=== PATIENT | female | born 1935 | race Caucasian/White ===

== ENCOUNTER 2016-06-13 05:54 | Inpatient (IN) | payer OTHER ==
[2016-06-13] VITALS (12 sets, daily range): BP systolic 11–116; BP diastolic 43–84
[~2016-06-13] VITALS: Ht 149.9 cm; Wt 68.3 kg
--- NOTE | ~2016-06-13 | HC ---
[facility] [place] [address] CONSULTATION Name: MAGGIE PORTILLO Room #: 422-P ADM IN M.R.#: [id number] Admission: 06/13/16 Attend Phys: Marcus Peck Discharge: Date of : 31 Report #: [id number] THIS REPORT FOR: //name// CC: Nae Peck PRIMARY CARE PHYSICIAN: Unknown. REFERRAL PHYSICIAN: Dr. Marcus Peck. REASON FOR REFERRAL: Sepsis, pneumonia. HISTORY OF PRESENT ILLNESS: The patient is an 81-year-old care home patient brought to the hospital with apparent altered mental status. She is felt to have pneumonia with sepsis. A pulmonary consultation was requested. The patient is nonverbal. She is obtunded. She apparently presented to [facility] for evaluation of altered mental status. She was felt to have aspirated and was subsequently transferred to [facility]. Family is not available. According to the records, patient has been debilitated, with a history of CVA. She is lying in bed. She has muscle contractures. Portable chest x-ray and the rest of the laboratory data are pending at this time. PAST MEDICAL HISTORY: As mentioned above with progressive debility, weakness, apparent history of CVA, hypertension, osteoarthritis, glaucoma. PAST SURGICAL HISTORY: Include status post bilateral cataract, lens implantation, umbilical hernia repair, laparoscopic cholecystectomy, history of dental extractions. ALLERGIES: PENICILLIN, SULFA, QUININE, which causes edema and rash. MEDICATIONS: List reviewed in the [facility]. FAMILY HISTORY AND SOCIAL HISTORY: Is unknown. REVIEW OF SYSTEMS: Deferred as patient is nonverbal. PHYSICAL EXAMINATION: GENERAL: She is not responsive. VITAL SIGNS: Temperature is 98 degrees Fahrenheit, pulse is 100, respiratory rate is 24, blood pressure is 107/53 mmHg, saturation 94% on 4 liters of O2. [facility] [address] [place] [address] CONSULTATION Name: MAGGIE PORTILLO Room #: 422-P [facility] IN [facility].#: [id number] Admission: 06/13/16 Attend Phys: Marcus Peck Discharge: Date of : 31 Report #: [id number] HEENT: Normocephalic, atraumatic. NECK: Supple without any lymphadenopathy or thyromegaly. CHEST: Breath sounds are decreased bilaterally due to poor effort. No obvious wheezes. Few scattered crackles in the bases. CARDIOVASCULAR: Heart sounds are distant. No obvious murmurs or gallop. Pulses are 2+/4+ bilaterally. BREASTS: Exam deferred. ABDOMEN: Soft, no masses felt. Nontender. GENITOURINARY: Deferred. RECTAL: Deferred. EXTREMITIES: No cyanosis, clubbing or edema. MUSCULOSKELETAL: Moderate muscle atrophy is noted. The patient appears to have muscle contractures. Laboratory and portable chest x-ray pending. IMPRESSION: 1. Altered mental status in this 81-year-old white female. She resides in a nursing care facility. Sepsis is suspected. Aspiration is also suspected. The patient may have a component of aspiration pneumonia. 2. Acute hypoxic respiratory failure due to above. 3. Presumed aspiration pneumonia. We will review chest x-ray when available. 4. Progressive debility weakness with an apparent history of cerebrovascular accident. 5. Dementia. 6. Hypertension. RECOMMENDATION: Agree with current treatment plans including broad spectrum antibiotics, sepsis protocol. According to nursing, the patient had been in hospice care at the nursing facility. I agree with the treatment in this patient with advanced age with dementia and progressive weakness and debility. We will discuss with her daughter who was on the way to the hospital regarding level of care. Thank you for this consultation. <ELECTRONICALLY SIGNED> By: Thien Wells MD 06/14/16 1634 [id number] Thien Wells MD /nt
--- NOTE | ~2016-06-13 | HC ---
[facility] [place] [address] CONSULTATION Name: MAGGIE PORTILLO Room #: 422-P ADM IN M.R.#: [id number] Admission: 06/13/16 Attend Phys: Marcus Peck Discharge: Date of : 31 Report #: [id number] THIS REPORT FOR: //name// CC: Nae Peck INFECTIOUS DISEASES CONSULTATION REASON FOR CONSULTATION: I was asked to evaluate concerning severe sepsis and decreased mental status. HISTORY OF PRESENT ILLNESS: The patient was an 81-year-old [facility] with underlying cerebrovascular disease and dementia, who was unable to give any details of her history. She presented to [facility] earlier this morning with decreased responsiveness. There, she was tachycardic, temperature of 99.5, blood pressure was 110/55. She was responsive, but we were concerned about further sepsis and decline and was transferred to [facility]. Here, vital signs are being taken. I do not have her temperature, yet her heart rate is 100, blood pressure 97/46. She received 1 liter of IV fluids, at least hanging now. I do not know how much she received in the emergency room at [facility]. She has indwelling Guerrier catheter and peripheral IV in place. No reported rashes or decubiti. No nausea, vomiting or diarrhea. ALLERGIES: Multiple including PENICILLIN, CEPHALOSPORINS and SULFA. Full list as noted in her charting. MEDICATIONS: As noted on her JUL. [facility] Lev[facility]. PAST MEDICAL HISTORY: Stroke, dementia, contractures, hypertension, urinary tract infection, total knee arthroplasties, C. difficile colitis, dysphagia, gastroesophageal reflux, glaucoma and restless leg syndrome. FAMILY HISTORY: Noncontributory. SOCIAL HISTORY: [facility] resident, otherwise noncontributory. REVIEW OF SYSTEMS: As noted above. PHYSICAL EXAMINATION: GENERAL: The patient was arousable. She was non-communicative. She was contractured in both upper and lower extremities. SKIN: In good repair, with no decubiti or rash. No adenopathy. EYES: Some conjunctivitis. MOUTH: Unremarkable. LUNGS: Few crackles in the bases bilaterally. No consolidation. [facility] [address] [place] [address] CONSULTATION Name: MAGGIE PORTILLO [place] Room #: 422-P [facility] IN M.R.#: [id number] Admission: 06/13/16 Attend Phys: Marcus Peck Discharge: Date of : 31 Report #: [id number] HEART: Tachycardic and regular. ABDOMEN: Soft. Did not appear tender. No hepatosplenomegaly or mass appreciated. Bowels palpable in the lower abdomen, I suspect just poor muscular tone. RECTAL EXAMINATION: Not performed. Indwelling Guerrier catheter. LABORATORY STUDIES: Prior to her arrival from [facility] Emergency Room, sodium was 134, potassium 3.5, bicarbonate 25 and creatinine 1.8. Lactate 3.4. Liver function test normal. BNP was 1979. On 4 liters of oxygen showed pO2 is 58, pCO2 of 33 and pH of 7.4. Chest x-ray showed bilateral atelectasis and infiltrate. Hemoglobin 13.1, white count 7.9 with 53% bands and platelet count 163,000. IMPRESSION AND PLAN: An 81-year-old [facility] with cerebrovascular disease and dementia, contractured, reportedly on hospice care, now with sepsis syndrome, dehydration, acute renal failure and marked left shift on her white count, suspecting either urinary tract infection or pneumonia. Abdomen was soft. I do not think we are dealing with an intra-abdominal infection at this time. I would recommend IV fluid resuscitation, continue respiratory care. IV antibiotic therapy. We will need to discuss further with family how aggressive to be in this situation, considering the patient is on hospice. <ELECTRONICALLY SIGNED> By: Amos Gomez MD 06/14/16 0833 [id number] Amos Gomez MD /nt
[2016-06-13 08:43] LABS: ABG SAMPLE TYPE ARTERIAL; BE(vivo) 2.8 mmol/L (-2 to +3); LACTATE 2.49 mmol/L (0.5-2.0); O2(CT) 15.8 mL/dL (15.0-23.0); O2Hb 88.1 % (92.0-98.0); PCO2 35.1 mmHg (35.0-45.0); pH 7.487 (7.360-7.450); sO2 89.7 % (92.0-98.0)
[2016-06-13 08:44] LABS: PO2 52.1 mmHg (80.0-100.0); STICK SITE L.RADIAL
[2016-06-13 08:45] LABS: HEMATOCRIT 37.3 % (37.0-47.0); HEMOGLOBIN 12.3 gm/dL (12.0-15.0); MCH 30.3 pg (26.0-34.0); MCHC 32.9 % (28.0-37.0); MCV 92.3 fL (80.0-100.0); RBC 4.04 mil/uL (4.20-5.00); WBC 7.7 thou/uL (4.0-11.0)
[2016-06-13 08:46] LABS: MANUAL DIFF YES
[2016-06-13 08:59] LABS: CREATININE 1.7 mg/dL (0.6-1.3); POTASSIUM 3.3 mmol/L (3.5-5.1)
[2016-06-13 09:01] LABS: APTT 38.3 Seconds (24.5-32.8); INR 1.1; PROTIME 11.6 Seconds (9.3-11.4)
[2016-06-13 09:04] LABS: ALBUMIN 1.7 g/dL (3.4-5.0); TOTAL BILIRUBIN 0.6 mg/dL (<0.1-1.0); TOTAL PROTEIN 5.8 g/dL (6.4-8.2)
[2016-06-13 10:17] LABS: ABSOLUTE NEUTROPHILS 6.9 thou/uL (1.4-8.2); TOTAL CELL COUNT 100
[2016-06-13 10:18] LABS: LARGE PLATELETS FEW
[2016-06-13 10:19] LABS: TOXIC GRANULATION SLIGHT
[2016-06-13 10:23] LABS: PLATELET COUNT 158 thou/uL (150-400)
[2016-06-13 10:55] LABS: URINE BILIRUBIN NEGATIVE (Negative); URINE BLOOD 1+ (Negative); URINE COLOR YELLOW; URINE GLUCOSE-RANDOM* NEGATIVE (Negative); URINE KETONES NEGATIVE (Negative); URINE NITRITE NEGATIVE (Negative); URINE PROTEIN (DIPSTICK) TRACE (Negative); URINE UROBILINOGEN 0.2 E.U./dl (0.2-1.0)
[2016-06-13 11:09] LABS: SQUAMOUS >10 Many /LPF (0-3); URINE RBC 0-2 Rare /HPF (0-2); URINE WBC >25 Many /HPF (0-5)
[2016-06-13 11:10] LABS: BACTERIA >30 Many /HPF (None Seen); CRYSTALS None Seen /LPF (None Seen); HYALINE CASTS 0-3 Few /LPF (None Seen)
[2016-06-14 00:01] VITALS: BP 118/59
[2016-06-14 02:40] VITALS: BP 108/46
[2016-06-14 06:29] LABS: HEMATOCRIT 36.4 % (37.0-47.0); HEMOGLOBIN 11.6 gm/dL (12.0-15.0); MCH 29.9 pg (26.0-34.0); MCHC 31.9 % (28.0-37.0); MCV 93.6 fL (80.0-100.0); PLATELET COUNT 142 thou/uL (150-400); RBC 3.89 mil/uL (4.20-5.00); RDW 15.2 % (10.5-14.5); WBC 6.4 thou/uL (4.0-11.0)
[2016-06-14 06:30] LABS: MANUAL DIFF YES
[2016-06-14 06:44] LABS: ALBUMIN 1.4 g/dL (3.4-5.0); ALKALINE PHOSPHATASE 81 U/L (46-116); ANION GAP 10 mmol/L (7-16); BUN 37 mg/dL (7-18); CALCIUM 8.3 mg/dL (8.5-10.1); CHLORIDE 122 mmol/L (98-107); CO2 25 mmol/L (21-32); CREATININE 0.9 mg/dL (0.6-1.3); GLUCOSE 70 mg/dL (70-99); MAGNESIUM 1.9 mg/dL (1.8-2.4); SGOT 84 U/L (15-37); SGPT 26 U/L (30-65); SODIUM 157 mmol/L (136-145); TOTAL BILIRUBIN 0.5 mg/dL (<0.1-1.0); TOTAL PROTEIN 5.3 g/dL (6.4-8.2); TROPONIN-I < 0.04 ng/mL (<0.04-0.07)
[2016-06-14 06:48] LABS: POTASSIUM 2.9 mmol/L (3.5-5.1)
[2016-06-14 08:05] VITALS: BP 127/61
[2016-06-14 08:12] LABS: ABSOLUTE NEUTROPHILS 5.2 thou/uL (1.4-8.2); TOTAL CELL COUNT 100
[2016-06-14 08:13] LABS: ANISOCYTOSIS 1+; MYELOCYTES 1 %
[2016-06-14 13:19] LABS: MAGNESIUM 1.9 mg/dL (1.8-2.4); POTASSIUM 3.5 mmol/L (3.5-5.1)
[2016-06-14 15:22] VITALS: BP 139/70
[2016-06-14 20:00] VITALS: BP 132/66
[2016-06-15 04:30] VITALS: BP 127/60
[2016-06-15 07:32] LABS: ABSOLUTE NEUTROPHILS 6.4 thou/uL (1.4-8.2); BASOPHILS 0.4 % (0.0-2.0); EOSINOPHILS 0.4 % (0.0-3.0); HEMATOCRIT 36.9 % (37.0-47.0); HEMOGLOBIN 12.2 gm/dL (12.0-15.0); LYMPHOCYTES 13.2 % (24.0-44.0); MCH 30.2 pg (26.0-34.0); MCV 91.5 fL (80.0-100.0); MONOCYTES 7.2 % (1.0-8.0); PLATELET COUNT 145 thou/uL (150-400); POLYS 78.8 % (36.0-66.0); RBC 4.03 mil/uL (4.20-5.00); RDW 15.2 % (10.5-14.5); WBC 8.1 thou/uL (4.0-11.0)
[2016-06-15 07:41] LABS: MANUAL DIFF NO
[2016-06-15 08:05] LABS: ALBUMIN 1.5 g/dL (3.4-5.0); CALCIUM 7.9 mg/dL (8.5-10.1); CREATININE 0.7 mg/dL (0.6-1.3); MAGNESIUM 1.8 mg/dL (1.8-2.4); POTASSIUM 3.5 mmol/L (3.5-5.1); TOTAL BILIRUBIN 0.6 mg/dL (<0.1-1.0); TOTAL PROTEIN 4.7 g/dL (6.4-8.2)
[2016-06-15 08:08] VITALS: BP 128/66
[2016-06-15 17:13] VITALS: BP 122/69
[2016-06-15 20:00] VITALS: BP 113/62
[2016-06-16 04:00] VITALS: BP 103/60
[2016-06-16 06:01] LABS: HEMATOCRIT 34.8 % (37.0-47.0); HEMOGLOBIN 11.6 gm/dL (12.0-15.0); MCH 30.1 pg (26.0-34.0); MCHC 33.3 % (28.0-37.0); MCV 90.6 fL (80.0-100.0); PLATELET COUNT 148 thou/uL (150-400); RBC 3.84 mil/uL (4.20-5.00); RDW 15.3 % (10.5-14.5)
[2016-06-16 06:24] LABS: MANUAL DIFF YES
[2016-06-16 06:29] LABS: CALCIUM 8.3 mg/dL (8.5-10.1); CREATININE 0.8 mg/dL (0.6-1.3)
[2016-06-16 06:43] LABS: POTASSIUM 2.9 mmol/L (3.5-5.1)
[2016-06-16 07:56] VITALS: BP 111/61
[2016-06-16 08:27] LABS: ABSOLUTE NEUTROPHILS 7.5 thou/uL (1.4-8.2); TOTAL CELL COUNT 100
[2016-06-16 15:57] VITALS: BP 109/65
[2016-06-16 20:00] VITALS: BP 110/59
[2016-06-17 04:00] VITALS: BP 110/63
[2016-06-17 05:40] LABS: BASOPHILS 0.3 % (0.0-2.0); EOSINOPHILS 5.2 % (0.0-3.0); HEMOGLOBIN 10.8 gm/dL (12.0-15.0); LYMPHOCYTES 16.7 % (24.0-44.0); MCH 30.4 pg (26.0-34.0); MCHC 32.7 % (28.0-37.0); MCV 92.9 fL (80.0-100.0); MONOCYTES 5.5 % (1.0-8.0); PLATELET COUNT 151 thou/uL (150-400); POLYS 72.3 % (36.0-66.0); RBC 3.55 mil/uL (4.20-5.00); WBC 9.6 thou/uL (4.0-11.0)
[2016-06-17 05:41] LABS: MANUAL DIFF NO
[2016-06-17 05:53] LABS: CALCIUM 7.3 mg/dL (8.5-10.1); CREATININE 0.7 mg/dL (0.6-1.3)
[2016-06-17 06:04] LABS: POTASSIUM 2.7 mmol/L (3.5-5.1)
[2016-06-17 07:55] VITALS: BP 134/71
[2016-06-17 15:13] VITALS: BP 108/62
[2016-06-17 23:18] VITALS: BP 105/58
[2016-06-18 04:54] VITALS: BP 115/91
[2016-06-18 06:32] LABS: HEMATOCRIT 33.2 % (37.0-47.0); HEMOGLOBIN 11.1 gm/dL (12.0-15.0); MCH 30.1 pg (26.0-34.0); MCHC 33.4 % (28.0-37.0); MCV 90.1 fL (80.0-100.0); RBC 3.69 mil/uL (4.20-5.00); WBC 11.2 thou/uL (4.0-11.0)
[2016-06-18 07:13] LABS: ALBUMIN 1.3 g/dL (3.4-5.0); CALCIUM 7.3 mg/dL (8.5-10.1); CREATININE 0.6 mg/dL (0.6-1.3); MAGNESIUM 1.5 mg/dL (1.8-2.4); PHOSPHORUS 2.2 mg/dL (2.5-4.9); POTASSIUM 3.4 mmol/L (3.5-5.1)
[2016-06-18 09:44] VITALS: BP 130/73
[2016-06-18 15:42] VITALS: BP 113/55
[2016-06-18 20:00] VITALS: BP 111/52; BP 147/64
[2016-06-19 04:30] VITALS: BP 112/58
[2016-06-19 06:43] LABS: ALBUMIN 1.3 g/dL (3.4-5.0); CALCIUM 7.5 mg/dL (8.5-10.1); CREATININE 0.5 mg/dL (0.6-1.3); PHOSPHORUS 2.8 mg/dL (2.5-4.9); POTASSIUM 3.1 mmol/L (3.5-5.1)
[2016-06-19 07:46] VITALS: BP 141/63
[2016-06-19 17:35] VITALS: BP 12/71; BP 142/71
== END 2016-06-19 18:34 | disposition hospice, inpatient (51) | DRG 871 ==
LOC: ICU 05:54 → 4E 06-14 02:43
PROVIDERS: Family Medicine; Hospitalist; Nurse Practitioner
DX: A41.9 Sepsis, unspecified organism (principal); J96.01 Acute respiratory failure with hypoxia; J69.0 Pneumonitis due to inhalation of food and vomit; G92 Toxic encephalopathy; N39.0 Urinary tract infection, site not specified; N17.9 Acute kidney failure, unspecified; E87.1 Hypo-osmolality and hyponatremia; E44.0 Moderate protein-calorie malnutrition; F03.90 Unspecified dementia, unspecified severity, without behavioral disturbance, psychotic disturbance, mood disturbance, and anxiety; E87.6 Hypokalemia; R13.11 Dysphagia, oral phase; D64.9 Anemia, unspecified; B96.20 Unspecified Escherichia coli [E. coli] as the cause of diseases classified elsewhere; Z66 Do not resuscitate; I10 Essential (primary) hypertension; Z96.659 Presence of unspecified artificial knee joint; K21.9 Gastro-esophageal reflux disease without esophagitis; H40.9 Unspecified glaucoma; G25.81 Restless legs syndrome; E86.0 Dehydration; M19.90 Unspecified osteoarthritis, unspecified site; Z98.42 Cataract extraction status, left eye; Z98.41 Cataract extraction status, right eye; Z90.49 Acquired absence of other specified parts of digestive tract; Z86.73 Personal history of transient ischemic attack (TIA), and cerebral infarction without residual deficits; Z98.818 Other dental procedure status; Z88.2 Allergy status to sulfonamides; Z87.891 Personal history of nicotine dependence; Z68.30 Body mass index [BMI] 30.0-30.9, adult; Z88.0 Allergy status to penicillin; Z88.6 Allergy status to analgesic agent; Z88.8 Allergy status to other drugs, medicaments and biological substances; Z88.1 Allergy status to other antibiotic agents
CPT/HCPCS: 10078; 10183